=== PATIENT | male | born 1960 | race African-American/Black ===

== ENCOUNTER 2018-07-04 10:53 | Observation (INO) ==
[2018-07-04 11:20] LABS: Microscopic, Urine URINE MICROSCOPIC (MICROSCOPIC)
--- NOTE | 2018-07-04 11:20 | Emergency Department Note ---
ED Disposition Clinical Impression: Urinary tract infection Qualifiers: Urinary tract infection type: site unspecified Hematuria presence: with hematuria Qualified Code(s): N39.0 - Urinary tract infection, site not specified Disposition: Admitted as Observation Condition on Discharge: [facility] - Critical Care Critical Care Time: No Attestation: On 07/04/18, the high probability of a clinically significant, sudden or life threatening deterioration of the following system(s) required my full and direct attention, intervention and personal management. The time I documented below is in addition to time spent performing reported procedures but includes the following listed in this critical care notation. Medical Decision Making - [place] Inquiry Pt receiving controlled substance: No Vital Signs: 07/04/18 10:56 07/04/18 11:48 07/04/18 12:30 Temperature 97.8 F Temperature Source Oral Pulse Rate Pulse Rate [Right Brachial] 68 69 66 Respiratory Rate 20 18 16 Blood Pressure Blood Pressure [Right Arm] 136/80 130/60 138/73 Blood Pressure Mean [Right Arm] 98 83 94 Blood Pressure Source Blood Pressure Source [Right Arm] Automatic Cuff Automatic Cuff Automatic Cuff Blood Pressure Position Blood Pressure Position [Right Arm] Sitting Sitting Sitting 02 Sat by Pulse Oximetry 100 100 100 Oxygen Delivery Method Room Air Room Air Room Air 07/04/18 13:00 07/04/18 13:30 07/04/18 14:00 Temperature Temperature Source Pulse Rate Pulse Rate [Right Brachial] 68 70 68 Respiratory Rate 16 16 Blood Pressure Blood Pressure [Right Arm] 139/79 128/59 122/63 Blood Pressure Mean [Right Arm] 99 82 82 Blood Pressure Source Blood Pressure Source [Right Arm] Automatic Cuff Automatic Cuff Automatic Cuff Blood Pressure Position Blood Pressure Position [Right Arm] Sitting Left Lateral Sitting 02 Sat by Pulse Oximetry 99 99 98 Oxygen Delivery Method Room Air Room Air Room Air 07/04/18 14:03 07/04/18 14:17 Temperature 98.2 F Temperature Source Oral Pulse Rate 71 Pulse Rate [Right Brachial] Respiratory Rate 16 Blood Pressure 122/63 Blood Pressure [Right Arm] Blood Pressure Mean [Right Arm] Blood Pressure Source Automatic Cuff Blood Pressure Source [Right Arm] Blood Pressure Position Supine Blood Pressure Position [Right Arm] 02 Sat by Pulse Oximetry Oxygen Delivery Method Room Air Room Air - Lab Data Lab Results 07/04/18 11:10: WBC 18.8 H, RBC 4.64, Hgb 14.6, Hct 43.8, MCV 94.4 H, MCH 31.4 H , MCHC 33.3, RDW 12.9, Plt Count 411, MPV 6.9 L, Neut % (Auto) 79.6, Lymph % (Auto) 13.6, [place] % (Auto) 5.5, Eos % (Auto) 1.0, Baso % (Auto) 0.4, Neut # (Auto) 15.0 H, Lymph # (Auto) 2.6, [place] # (Auto) 1.0, Eos # (Auto) 0.2, Baso # (Auto) 0.1, Total Counted 100, Neutrophils % (Manual) 75, Lymphocytes % (Manual) 16, Atypical Lymphs % 2.0, Monocytes % (Manual) 6, Eosinophils % (Manual) 1, Platelet Estimate Normal, RBC Morphology Normal 07/04/18 11:10: Sodium 141, Potassium 3.3 L, Chloride 102, Carbon Dioxide 24, Anion Gap 18.3 H, BUN 11, Creatinine 1.25, Estimated Creat Clear 72, Estimated GFR 59, Est GFR ( Amer) 72, Glucose 146 H, Calcium 9.7, Total Bilirubin 1.1 H, AST 9 L, ALT 21, Alkaline Phosphatase 139 H, Total Protein 8.4 H, Albumin 4.0, Globulin 4.4 H, Albumin/Globulin Ratio 0.9 L, Amylase 73, Lipase 88 07/04/18 11:10: Troponin I < 0.02 07/04/18 11:15: Urine Color Yellow, Urine Appearance Sl cloudy, Urine pH 8.5, Ur Specific [place] 1.010, Urine Protein Trace, Urine Glucose (UA) Negative, Urine Ketones 1+, Urine Blood Negative, Urine Nitrate Negative, Urine Bilirubin Negative, Urine Urobilinogen 4.0, Ur Leukocyte Esterase 2+ A, Urine WBC 20-50, Ur Squamous Epith Cells 5-10, Urine Bacteria 1+ Result diagrams: 07/04/18 11:10 07/04/18 11:10 Orders (Tests/Meds): ED MEDICATIONS Generic Name Dose Route Start Last Admin Trade Name Freq PRN Reason Stop Dose Admin Acetaminophen 650 mg 07/04/18 14:03 Acetaminophen 325mg Tab PO 08/03/18 14:02 Q4HP PRN As Needed for Fever or Pain Atenolol 50 mg 07/05/18 09:00 Tenormin 50mg Tablet PO 08/04/18 08:59 DAILY BOONE Duloxetine HCl 30 mg 07/05/18 09:00 Cymbalta 30mg Capsule PO 08/04/18 08:59 DAILY BOONE Cefepime HCl 2 gm/ Sodium 100 mls @ 200 mls/hr 07/05/18 01:00 Chloride IV 07/18/18 00:59 Q12H BOONE Protocol Sodium Chloride 1,000 mls @ 100 mls/hr 07/04/18 14:03 07/04/18 15:04 Sod Chlor 0.9% 1000ml Bag IV 08/03/18 14:02 100 mls/hr .Q10H BOONE Administration Pantoprazole Sodium 40 mg 07/05/18 09:00 Protonix 40mg Tablet PO 08/04/18 08:59 DAILY BOONE Promethazine HCl 12.5 mg 07/04/18 14:03 Phenergan 25mg/Ml 1ml Vial IV 08/03/18 14:02 Q6HP PRN Nausea And Vomiting Sodium Chloride 25 ml 07/04/18 14:03 Sod Chlor 0.9% 25ml Bag IV 08/03/18 14:02 NEEDED PRN to Dilute Promethazine inj Discontinued Medications Generic Name Dose Route Start Last Admin Trade Name Freq PRN Reason Stop Dose Admin Sodium Chloride 1,000 mls @ 999 mls/hr 07/04/18 11:30 07/04/18 11:18 Sod Chlor 0.9% 1000ml Bag IV 07/04/18 12:30 999 mls/hr .Q1H1M BOONE Administration Cefepime HCl 2 gm/ Sodium 100 mls @ 200 mls/hr 07/04/18 12:00 07/04/18 13:06 Chloride IV 07/18/18 11:59 200 mls/hr Q12H BOONE Administration Protocol Ondansetron HCl 4 mg 07/04/18 11:04 07/04/18 11:18 Zofran 4mg/2ml Vial IV 07/04/18 11:05 4 mg ONCE ONE Administration Pantoprazole Sodium 40 mg 07/04/18 11:26 07/04/18 11:45 Protonix 40mg Vial IV 07/04/18 11:27 40 mg ONCE ONE Administration Promethazine HCl 12.5 mg 07/04/18 11:24 07/04/18 11:45 Phenergan 25mg/Ml 1ml Vial IV 07/04/18 11:25 12.5 mg ONCE ONE Administration Promethazine HCl 12.5 mg 07/04/18 12:56 07/04/18 13:01 Phenergan 25mg/Ml 1ml Vial IV 07/04/18 12:57 12.5 mg ONCE ONE Administration Sodium Chloride 25 ml 07/04/18 11:24 07/04/18 11:45 Sod Chlor 0.9% 25ml Bag IV 07/04/18 11:25 25 ml ONCE ONE Administration Sodium Chloride 8 ml 07/04/18 11:26 07/04/18 11:45 Saline Flush 10ml Syringe IV 07/04/18 11:27 8 ml ONCE ONE Administration Sodium Chloride 25 ml 07/04/18 12:56 07/04/18 13:09 Sod Chlor 0.9% 25ml Bag IV 07/04/18 12:57 25 ml ONCE ONE Administration ORDERS Category Date Time Status Complete Blood Count Auto Diff AMLAB Lab 07/05/18 06:00 Ordered Urinalysis and Microscopic Stat Lab 07/04/18 11:15 Ordered Blood Culture Stat Micro 07/04/18 13:15 Received Urine Culture Stat Micro 07/04/18 11:15 Received - CT Data CT Scan: Abdomen, Pelvis Time Received: 12:[address] Reviewed: Yes: I discussed the CT results w/the radiologist Findings Narrative: No renal or ureteral calculi. Bilateral inguinal hernias, smaller than previous study. No acute process. - ECG Data Tracing #1 EKG interpreted by Christos Patton MD: Rhythm: sinus Rate: 64 [place]: normal Ectopy: none Conduction: normal ST Segment Changes: none T Wave Changes: none Q Waves: none No evidence of acute ischemia or injury - Physician Consults Physician Consulted: Shawn Nicholson Time: 13:06 Reason -: Admission Comment/Response: Agrees to admit the patient to the hospital. We discussed the patient's clinical information, including history, exam, laboratory and radiology results and ED course. Per hospital procedure, I will write temporary bridge inpatient orders on the patient. Specific orders requested by the admitting physician: Continue cefepime. Anti-emetics, IV fluids. General Adult HPI - General Chief complaint: Nausea/Vomiting/Diarrhea Stated complaint: vomiting, history uti and kidney stone Time Seen by Provider: 07/04/18 11:19 Mode of Arrival: Ambulatory Limitations: No Limitations Description of Symptoms (Recalled from ER Triage Doc. by RN): Pt reports began nausea and vomitting than began lastnight, reports when urinating lastnight he noticed "pus and blood in urine". - History of Present Illness HPI narrative: Since yesterday has nausea and vomiting. Denies abdominal pain. States that he had blood and pus in his urine. Has chronic low back pain, does not feel there is any change in that symptom. No fever or diarrhea. States he has a history of gastric ulcer and he thinks it may be flaring up. Also has recently been battling urinary tract infection for the past several months. Saw a specialist for this as well. I reviewed his record. Saw urologist, diagnosed with epididymitis. Also has a history of kidney stones, and urologist felt that if the symptoms recurred he should have a CT scan. He has taken Zofran at home which did not help. States he has also received Z ofran in the past and it has not helped. Has been given something else by his physician, but does not remember what it was. - Related Data Home Medications Medication Instructions Recorded Confirmed atenolol 50 mg tablet 50 mg PO DAILY 30 Days #30 tab 06/29/18 07/04/18 duloxetine 30 mg capsule,delayed 30 mg PO DAILY 30 Days #30 cap 06/29/1807/04 release pantoprazole 40 mg tablet,delayed 40 mg PO DAILY 30 Days #30 tab 06/29/18 07/04/18 release Allergies Allergy/AdvReac Type Severity Reaction Status Date / Time adhesive [ADHESIVE] Allergy Mild Verified 06/29/18 14:45 [facility] History I have reviewed the patient's past medical history: Yes Medical History: Reports:: Gastroesophageal Reflux Disease(GERD), Hypertension, Kidney Stones, Urinary Tract Infection Denies:: Diabetes Mellitus Type 1, Diabetes Mellitus Type 2 Other Surgeries: Yes: No Previous Surgery - Social History Smoking Status: Unknown if ever smoked Alcohol Intake: never - Psychiatric History Expresses thoughts of harming self/others: None Suicide Plan Description: No Plan ROS Obtained: Yes All systems reviewed & no additional complaints - Constitutional Constitutional: Denies fever(s) - Cardiovascular Cardiovascular: Denies chest pain - Respiratory Respiratory: No dyspnea - Gastrointestinal Gastrointestingal: Reports: abdominal pain, nausea, vomiting. Denies: diarrhea - Genitourinary Male Genitourinary: Reports hematuria - Musculoskeletal Musculoskeletal: Reports back pain (Low back pain, chronic) Physical Exam - General General appearance: alert, in no apparent distress - Head Head exam: atraumatic, normocephalic, normal inspection - Eye Eye exam: Present: normal appearance, PERRL, EOMI - ENT ENT exam: Present: normal exam, normal oropharynx, mucous membranes moist, TM's normal bilaterally, normal external ear exam - Neck Neck exam: Present: normal inspection, full ROM, trachea midline. Absent: meningismus, lymphadenopathy - Chest Chest inspection: Present: normal inspection, symmetric chest wall rise. Absent: tenderness - Respiratory Respiratory exam: Present: normal lung sounds bilaterally. Absent: respiratory distress - Cardiovascular Cardiovascular exam: Present: regular rate, normal rhythm. Absent: JVD - Abdominal Exam Abdominal exam: Present: soft, tenderness, normal bowel sounds. Absent: distention, guarding Abdominal tenderness: Present: epigastrium - exam: Present: normal inspection. Absent: testicular tenderness, urethral discharge, scrotal swelling, circumcised - Extremities Exam Extremities exam: Present: normal inspection, full ROM, normal capillary refill. Absent: calf tenderness - Back Exam Back exam: Absent: CVA tenderness (R), CVA tenderness (L) - Neurological Exam Neurological exam: Present: alert, oriented X3 - Psychiatric Psychiatric exam: Present: normal affect, normal mood - Skin Skin exam: Present: warm, dry, intact, normal color
[2018-07-04 11:21] LABS: Appearance,Urine SL CLOUDY (Clear); Bilirubin,Urine Negative (Negative); Blood, Urine Negative (Negative); Color,Urine YELLOW (Yellow); Glucose,Urine (UA) Negative (Negative); Ketones,Urine 1+ (Negative); Leukocyte Esterase,Urine 2+ (Negative); PH,Urine 8.5 (5.0-8.5); Protein,Urine TRACE (Negative)
[2018-07-04 11:26] LABS: Basophils # 0.1 K/mm3 (0-0.2); Basophils % 0.4 % (0.1-2.0); Eosinophils # 0.2 K/mm3 (0.0-0.4); Hematocrit 43.8 % (42.0-52.0); Hemoglobin 14.6 g/dL (14.1-18.0); Lymphocytes # 2.6 K/mm3 (0.7-4.5); Lymphocytes % 13.6 K/mm3 (10-50); Mean Corpuscular HGB Conc 33.3 g/dL (31.8-35.4); Mean Corpuscular Hemoglobin 31.4 pg (27.0-31.2); Mean Corpuscular Volume 94.4 fl (80-94); Mean Platelet Volume 6.9 fl (7.4-10.4); Monocytes % 5.5 % (1.7-9.3); Neutrophils % 79.6 % (37.0-80.0); Platelet Count 411 K/mm3 (142-424); Red Blood Count 4.64 M/mm3 (4.60-6.20); Red Cell Distribution Width 12.9 % (11.5-17.5); White Blood Count 18.8 K/mm3 (4.8-10.8)
[2018-07-04 11:28] LABS: Bacteria,Urine 1+ /lpf; WBC,Urine 20-50 #/hpf (0-3)
[2018-07-04 11:34] LABS: Albumin/Globulin Ratio 0.9 (1.1-1.8); Anion Gap 18.3 mEq/L (5-15); Bilirubin,Total 1.1 mg/dL (0.2-1.0); Calcium 9.7 mg/dL (8.5-10.1); Globulin 4.4 gm/dl (1.3-3.2); Potassium 3.3 mmoL/L (3.5-5.1); Total Protein,Serum 8.4 gm/dL (6.4-8.2)
[2018-07-04 11:42] LABS: Eosinophils % 1 % (0-3); Lymphocytes % 16 % (10-50); Monocytes % 6 % (2-9); Neutrophils % 75 % (42-76); RBC Morphology Normal; Total Cells Counted 100
--- NOTE | 2018-07-04 14:23 | Pharmacy Consult Notes ---
[facility] Pharmacy VTE Monitoring - Patient Demographics Admission date: 07/04/18 Report Date: 07/04/18 Time: 14:23 Allergies/Adverse Reactions: Patient Allergies adhesive [ADHESIVE] Allergy (Mild, Verified 06/29/18 14:45) Height: 1.8 m Weight: 79.379 kg Patient Problems: Current Active Problems Urinary tract infection (Acute) - VTE Risk Labs: VTE Related Lab Results Hgb 14.6 g/dL (14.1-18.0) 07/04/18 11:10 Hct 43.8 % (42.0-52.0) 07/04/18 11:10 Plt Count 411 K/mm3 (142-424) 07/04/18 11:10 BUN 11 mg/dL (7-18) 07/04/18 11:10 Creatinine 1.25 mg/dL (0.70-1.30) 07/04/18 11:10 Estimated Creat Clear 72 mL/min (0-300) 07/04/18 11:10 - Prophylaxis VTE Prophylaxis Ordered?: Yes Types of VTE Prophylaxis: TEDS Knee High Location of Applied Device: Bilateral Lower Extremeties - VTE Diagnosis Confirmed Treatment or plan recommended: Continue Current Treatment
--- NOTE | 2018-07-04 16:51 | History & Physical Report ---
*Admission Date: 07/04/18 *Chief complaint: Nausea and vomiting *History of present illness: 57-year-old male with history of urinary tract infections over the last several months presented to the emergency department with 1 day of nausea and vomiting along with both blood and pus in his urine. He denies fevers. In the emergency department patient was vomiting quite a bit and even after Zofran and 2 doses of Phenergan his vomiting was unrelenting. Patient's white count was elevated and urine was abnormal. Patient was placed on IV fluids and cefepime and admitted for treatment of his infection as well as symptoms. At the time of interview he feels less nauseous and has not vomited since arrival to the floor. He has tolerated some ice chips. [facility] History I have reviewed the patient's past medical history: Yes Medical History: Reports:: Gastroesophageal Reflux Disease(GERD), Hypertension, Kidney Stones, Urinary Tract Infection Denies:: Diabetes Mellitus Type 1, Diabetes Mellitus Type 2 Other Surgeries: Yes: No Previous Surgery - *Social History Smoking Status: Unknown if ever smoked Alcohol Intake: never Substance Use Type: marijuana Occupational Status: disabled - Psychiatric History Expresses thoughts of harming self/others: None Suicide Plan Description: No Plan Review of Systems - Review of Systems Review of systems:: pertinent systems reviewed and negative unless documented below - Constitutional Denies body ache(s), Denies chills, Denies fever(s) - *Genitourinary Reports blood in urine, Reports urinary frequency, Reports urinary urgency, Denies painful urination, Denies genital lesions Meds Home Medications Medication Instructions Recorded Confirmed Type atenolol 50 mg tablet 50 mg PO DAILY 30 Days #30 tab 06/29/18 07/04/18 History duloxetine 30 mg capsule,delayed 30 mg PO DAILY 30 Days #30 cap 06/29/18 07/04/18 History release pantoprazole 40 mg tablet,delayed 40 mg PO DAILY 30 Days #30 tab 06/29/18 07/04/18 History release Allergies Allergy/AdvReac Type Severity Reaction Status Date / Time adhesive [ADHESIVE] Allergy Mild Verified 06/29/18 14:45 Exam Vital signs and Labs for Last 24 Hours: Temp Pulse Resp BP Pulse Ox 98.1 F 76 18 132/73 100 07/04/18 15:50 07/04/18 15:50 07/04/18 15:50 07/04/18 15:50 07/04/18 15:50 Laboratory Results - last 24 hr 07/04/18 11:10: WBC 18.8 H, RBC 4.64, Hgb 14.6, Hct 43.8, MCV 94.4 H, MCH 31.4 H , MCHC 33.3, RDW 12.9, Plt Count 411, MPV 6.9 L, Neut % (Auto) 79.6, Lymph % (Auto) 13.6, [place] % (Auto) 5.5, Eos % (Auto) 1.0, Baso % (Auto) 0.4, Neut # (Auto) 15.0 H, Lymph # (Auto) 2.6, [place] # (Auto) 1.0, Eos # (Auto) 0.2, Baso # (Auto) 0.1, Total Counted 100, Neutrophils % (Manual) 75, Lymphocytes % (Manual) 16, Atypical Lymphs % 2.0, Monocytes % (Manual) 6, Eosinophils % (Manual) 1, Platelet Estimate Normal, RBC Morphology Normal 07/04/18 11:10: Sodium 141, Potassium 3.3 L, Chloride 102, Carbon Dioxide 24, Anion Gap 18.3 H, BUN 11, Creatinine 1.25, Estimated Creat Clear 72, Estimated GFR 59, Est GFR ( Amer) 72, Glucose 146 H, Calcium 9.7, Total Bilirubin 1.1 H, AST 9 L, ALT 21, Alkaline Phosphatase 139 H, Total Protein 8.4 H, Albumin 4.0, Globulin 4.4 H, Albumin/Globulin Ratio 0.9 L, Amylase 73, Lipase 88 07/04/18 11:10: Troponin I < 0.02 07/04/18 11:15: Urine Color Yellow, Urine Appearance Sl cloudy, Urine pH 8.5, Ur Specific [place] 1.010, Urine Protein Trace, Urine Glucose (UA) Negative, Urine Ketones 1+, Urine Blood Negative, Urine Nitrate Negative, Urine Bilirubin Negative, Urine Urobilinogen 4.0, Ur Leukocyte Esterase 2+ A, Urine WBC 20-50, Ur Squamous Epith Cells 5-10, Urine Bacteria 1+ 07/04/18 13:15: Lactate 1.9 I & O for Last 24 hours: Intake & Output 07/02/18 07/03/18 07/04/18 07/05/18 11:59 11:59 11:59 11:59 Intake Total 999 / 999 Balance 1000 / 999 Weight 175 lb 177 lb 5 oz Narrative: Patient is awake and alert resting comfortably in bed. Oropharynx is moist. Lungs are clear to auscultation. Heart has a regular rate and rhythm. Back is without CVA tenderness. Abdomen is soft, nontender. There is no suprapubic tenderness. Extremities are warm to the touch and have active range of motion Assessment and Plan (1) Intractable vomiting with nausea Current visit: Yes Status: Acute Category: Medical Code(s): R11.2 - Nausea with vomiting, unspecified (2) Urinary tract infection Current visit: Yes Status: Acute Qualifiers: Urinary tract infection type: site unspecified Hematuria presence: with hematuria Qualified Code(s): N39.0 - Urinary tract infection, site not specified; R31.9 - Hematuria, unspecified Category: Medical Code(s): N39.0 - Urinary tract infection, site not specified - Assessment and plan all Dx Assessment and Plan for all problems:: Patient has been admitted observation for IV fluids and repeat labs in the morning. Continue IV cefepime.
[2018-07-05 06:01] LABS: Basophils # 0.1 K/mm3 (0-0.2); Basophils % 0.6 % (0.1-2.0); Eosinophils # 0.1 K/mm3 (0.0-0.4); Eosinophils % 0.4 % (0.1-12.0); Lymphocytes # 3.4 K/mm3 (0.7-4.5); Lymphocytes % 25.2 K/mm3 (10-50); Mean Corpuscular HGB Conc 32.5 g/dL (31.8-35.4); Mean Corpuscular Hemoglobin 31.4 pg (27.0-31.2); Mean Corpuscular Volume 96.5 fl (80-94); Mean Platelet Volume 6.6 fl (7.4-10.4); Monocytes # 0.9 K/mm3 (0.1-1.0); Monocytes % 6.8 % (1.7-9.3); Neutrophils # 9.1 K/mm3 (1.8-7.8); Platelet Count 378 K/mm3 (142-424); Red Blood Count 4.15 M/mm3 (4.60-6.20); White Blood Count 13.6 K/mm3 (4.8-10.8)
--- NOTE | 2018-07-05 07:20 | Discharge Summary ---
General - General Admission date:: 07/04/18 Discharge date: 07/05/18 HPI HPI: 57-year-old male with history of urinary tract infections over the last several months presented to the emergency department with 1 day of nausea and vomiting along with both blood and pus in his urine. He denies fevers. In the emergency department patient was vomiting quite a bit and even after Zofran and 2 doses of Phenergan his vomiting was unrelenting. Patient's white count was elevated and urine was abnormal. Patient was placed on IV fluids and cefepime and admitted for treatment of his infection as well as symptoms. At the time of interview he feels less nauseous and has not vomited since arrival to the floor. He has tolerated some ice chips. Hospital Course Hospital Course: Patient was admitted and placed on cefepime for his UTI. He was given Phenergan for nausea. Phenergan works well for nausea and patient did not have any further vomiting once he arrived on the [facility] floor. He did tolerate water and ice chips. His diet was advanced. He was able to tolerate small amounts of food as well as liquid. He was discharged home. Patient will be contacted in regards to his urine culture. He will be discharged home and follow-up in the office within the next week. Objective Vital signs: Temp Pulse Resp BP Pulse Ox 98.2 F 69 16 121/73 98 07/05/18 04:00 07/05/18 04:00 07/05/18 04:00 07/05/18 04:00 07/05/18 04:00 Results Labs on day of discharge: Labs from last 24 hours 07/05/18 07/04/18 07/04/18 05:35 13:15 11:15 WBC 13.6 H D RBC 4.15 L Hgb 13.0 L D Hct 40.0 L MCV 96.5 H MCH 31.4 H MCHC 32.5 RDW 13.0 Plt Count 378 MPV 6.6 L Neut % (Auto) 67.0 Lymph % (Auto) 25.2 [place] % (Auto) 6.8 Eos % (Auto) 0.4 Baso % (Auto) 0.6 Neut # (Auto) 9.1 H Lymph # (Auto) 3.4 [place] # (Auto) 0.9 Eos # (Auto) 0.1 Baso # (Auto) 0.1 Total Counted Neutrophils % (Manual) Lymphocytes % (Manual) Atypical Lymphs % Monocytes % (Manual) Eosinophils % (Manual) Platelet Estimate RBC Morphology Sodium Potassium Chloride Carbon Dioxide Anion Gap BUN Creatinine Estimated Creat Clear Estimated GFR Est GFR ( Amer) Glucose Lactate 1.9 Calcium Total Bilirubin AST ALT Alkaline Phosphatase Troponin I Total Protein Albumin Globulin Albumin/Globulin Ratio Amylase Lipase Urine Color Yellow Urine Appearance Sl cloudy Urine pH 8.5 Ur Specific [place] 1.010 Urine Protein Trace Urine Glucose (UA) Negative Urine Ketones 1+ Urine Blood Negative Urine Nitrate Negative Urine Bilirubin Negative Urine Urobilinogen 4.0 Ur Leukocyte Esterase 2+ A Urine WBC 20-50 Ur Squamous Epith Cells 5-10 Urine Bacteria 1+ 07/04/18 07/04/18 07/04/18 11:10 11:10 11:10 WBC 18.8 H RBC 4.64 Hgb 14.6 Hct 43.8 MCV 94.4 H MCH 31.4 H MCHC 33.3 RDW 12.9 Plt Count 411 MPV 6.9 L Neut % (Auto) 79.6 Lymph % (Auto) 13.6 [place] % (Auto) 5.5 Eos % (Auto) 1.0 Baso % (Auto) 0.4 Neut # (Auto) 15.0 H Lymph # (Auto) 2.6 [place] # (Auto) 1.0 Eos # (Auto) 0.2 Baso # (Auto) 0.1 Total Counted 100 Neutrophils % (Manual) 75 Lymphocytes % (Manual) 16 Atypical Lymphs % 2.0 Monocytes % (Manual) 6 Eosinophils % (Manual) 1 Platelet Estimate Normal RBC Morphology Normal Sodium 141 Potassium 3.3 L Chloride 102 Carbon Dioxide 24 Anion Gap 18.3 H BUN 11 Creatinine 1.25 Estimated Creat Clear 72 Estimated GFR 59 Est GFR ( Amer) 72 Glucose 146 H Lactate Calcium 9.7 Total Bilirubin 1.1 H AST 9 L ALT 21 Alkaline Phosphatase 139 H Troponin I < 0.02 Total Protein 8.4 H Albumin 4.0 Globulin 4.4 H Albumin/Globulin Ratio 0.9 L Amylase 73 Lipase 88 Urine Color Urine Appearance Urine pH Ur Specific [place] Urine Protein Urine Glucose (UA) Urine Ketones Urine Blood Urine Nitrate Urine Bilirubin Urine Urobilinogen Ur Leukocyte Esterase Urine WBC Ur Squamous Epith Cells Urine Bacteria DS: Diagnosis - Discharge Diagnosis (1) Urinary tract infection Status: Acute (2) Intractable vomiting with nausea Status: Acute Discharge Plan - Patient Discharge Instructions ACTIVITY: Continue current activity DIET: continue same diet - Follow up Plan Follow up with: Laurent Escobar MD [Staff Physician] - 2 weeks Disposition: Home, Self-Senior Living Medications: Home Medications Medication Instructions Recorded Confirmed Type atenolol 50 mg tablet 50 mg PO DAILY 30 Days #30 tab 06/29/18 07/04/18 History duloxetine 30 mg capsule,delayed 30 mg PO DAILY 30 Days #30 cap 06/29/18 07/04/18 History release pantoprazole 40 mg tablet,delayed 40 mg PO DAILY 30 Days #30 tab 06/29/18 07/04/18 History release Prescriptions/Medication Reconciliation: New Promethazine HCl [Phenergan 25mg tab] 25 mg PO Q6HP PRN #30 tab PRN Reason: Nausea And Vomiting Ciprofloxacin HCl [Cipro 500mg Tab] 500 mg PO BID #14 tab Continue atenolol 50 mg tablet 50 mg PO DAILY 30 Days #30 tab pantoprazole 40 mg tablet,delayed release 40 mg PO DAILY 30 Days #30 tab duloxetine 30 mg capsule,delayed release 30 mg PO DAILY 30 Days #30 cap
== END 2018-07-05 09:30 | disposition home or self-care (01) ==
LOC: ER 10:53 → 2ND 10:53
PROVIDERS: ADMIT Family Medicine; ATTEND Family Medicine

== ENCOUNTER 2022-03-01 08:52 | Emergency (ER) | payer MEDICARE, SELFPAY ==
[2022-03-01 08:58] VITALS: BP 147/85; PULSE 60; RESP 18; TEMP 36.8; O2SAT 100; BMI 26.5
[2022-03-01 09:10] VITALS: BP 147/85; PULSE 60; RESP 18; TEMP 36.8; O2SAT 100; BMI 26.4
--- NOTE | 2022-03-01 09:21 | HMH.EDUTC ---
[facility] [place] Disposition Clinical Impression: Gastroenteritis Disposition: Home, Self-Care Condition on Discharge: Good Instructions: Diarrhea, DI for Nausea -- Adult Additional Instructions: folow up PCP as needed, return here for worse or any concerns Prescriptions: Ondansetron [Zofran 4mg ODT] 4 mg PO TIDP PRN #12 tab PRN Reason: Nausea And Vomiting Transmission Status: Received by [id number] Referrals: Gino Heck MD [Primary Care Provider] - Medical Decision Making - Medical Records Medical records reviewed: No: I reviewed the patient's medical records. - Carlyle Inquiry Pt receiving controlled substance: No Vital Signs: 03/01/22 08:58 03/01/22 09:10 03/01/22 11:44 Temperature 98.2 F 98.2 F Temperature Source Oral Oral Pulse Rate Pulse Rate [Left Radial] 60 60 77 Respiratory Rate 18 18 18 Blood Pressure Blood Pressure [Right Arm] 147/85 H 147/85 H 159/75 H Blood Pressure Mean [Right Arm] 105 105 103 Blood Pressure Source [Right Arm] Automatic Cuff Blood Pressure Position [Right Arm] Sitting 02 Sat by Pulse Oximetry 100 100 99 Oxygen Delivery Method Room Air Room Air Room Air 03/01/22 12:01 Temperature 98.2 F Temperature Source Oral Pulse Rate 74 Pulse Rate [Left Radial] Respiratory Rate 18 Blood Pressure 155/84 H Blood Pressure [Right Arm] Blood Pressure Mean [Right Arm] Blood Pressure Source [Right Arm] Blood Pressure Position [Right Arm] 02 Sat by Pulse Oximetry Oxygen Delivery Method Room Air - Lab Data Lab results reviewed: Yes: I reviewed the patient's lab results. Lab Results 03/01/22 10:03: WBC 11.9 H, RBC 5.06, Hgb 16.8, Hct 49.6, MCV 98.0 H, MCH 33.1 H, MCHC 33.8, RDW 13.3, Plt Count 447 H, MPV 7.7, Neut % (Auto) 86.1 H, Lymph % (Auto) 9.8 L, [place] % (Auto) 2.1, Eos % (Auto) 0.8, Baso % (Auto) 1.1, Neut # (Auto) 10.2 H, Lymph # (Auto) 1.2, [place] # (Auto) 0.3, Eos # (Auto) 0.1, Baso # (Auto) 0.1, Total Counted 100, Neutrophils % (Manual) 87 H, Lymphocytes % (Manual) 10, Monocytes % (Manual) 2, Basophils % (Manual) 1.0, Platelet Estimate Slight increase, RBC Morphology Normal 03/01/22 10:03: Sodium 136, Potassium 3.9, Chloride 100, Carbon Dioxide 22, Anion Gap 17.9 H, BUN 7 L, Creatinine 1.00, Estimated Creat Clear 91, Estimated GFR 76, Est GFR ( Amer) 92, Glucose 170 H, Calcium 10.3 H, Total Bilirubin 0.9, AST 36, ALT 36, Alkaline Phosphatase 118, Total Protein 8.6 H, Albumin 5.0, Globulin 3.6 H, Albumin/Globulin Ratio 1.4, Amylase 112 H, Lipase 63 Result diagrams: 03/01/22 10:03 03/01/22 10:03 Orders (Tests/Meds): ED MEDICATIONS Discontinued Medications Generic Name Dose Route Start Last Admin Trade Name Freq PRN Reason Stop Dose Admin Sodium Chloride 1,000 mls @ 999 mls/hr 03/01/22 09:30 03/01/22 10:04 Sod Chlor 0.9% 1000ml Bag IV 03/01/22 10:30 999 mls/hr .Q1H1M BOONE Administration Ondansetron HCl 4 mg 03/01/22 10:32 03/01/22 10:35 Ondansetron 4mg/2ml Vial IV 03/01/22 10:33 4 mg ONCE ONE Administration Ondansetron HCl 4 mg 03/01/22 11:55 03/01/22 11:56 Ondansetron 4mg Odt SL 03/01/22 11:56 4 mg ONCE ONE Administration Promethazine HCl 25 mg 03/01/22 09:53 03/01/22 10:04 Promethazine Hcl 25mg/Ml 1ml Vial IM 03/01/22 09:54 25 mg ONCE ONE Administration [facility] [place] HPI - General Stated complaint: vomiting,diarrhea Time Seen by Provider: 03/01/22 09:22 Mode of Arrival: Ambulatory Source of Information: Patient Limitations: No Limitations Description of Symptoms (Recalled from Triage Doc. by RN): PATIENT C/O NAUSEA, VOMITING AND DIARRHEA THAT STARTED THIS MORNING HEENT Symptoms (Recalled from RN notes): No Resp Symptoms (Recalled from RN notes): No Skin Symptoms (Recalled from RN notes): No MS Symptoms (Recalled from RN notes): No Functional Status (Recalled from RN notes): WNL - History of Present Illness Provider Complaint: He states that he awoke at around 0430 this morning he awo
--- NOTE | 2022-03-01 10:06 | PC.NURSE ---
u/s guided 22g IV placed in the left forearm
[2022-03-01 10:17] LABS: Basophils # 0.1 K/mm3 (0-0.2); Basophils % 1.1 % (0.1-2.0); Eosinophils # 0.1 K/mm3 (0.0-0.4); Eosinophils % 0.8 % (0.1-12.0); Hematocrit 49.6 % (42.0-52.0); Hemoglobin 16.8 g/dL (14.1-18.0); Lymphocytes # 1.2 K/mm3 (0.7-4.5); Lymphocytes % 9.8 % (10-50); Mean Corpuscular HGB Conc 33.8 g/dL (31.8-35.4); Mean Corpuscular Hemoglobin 33.1 pg (27.0-31.2); Mean Platelet Volume 7.7 fl (7.4-10.4); Monocytes # 0.3 K/mm3 (0.1-1.0); Monocytes % 2.1 % (1.7-9.3); Neutrophils # 10.2 K/mm3 (1.8-7.8); Neutrophils % 86.1 % (37.0-80.0); Platelet Count 447 K/mm3 (142-424); Red Blood Count 5.06 M/mm3 (4.60-6.20); Red Cell Distribution Width 13.3 % (11.5-17.5); White Blood Count 11.9 K/mm3 (4.8-10.8)
[2022-03-01 10:20] LABS: Chloride 100 mmol/L (98-107); Potassium 3.9 mmoL/L (3.5-5.1); Sodium 136 mmol/L (136-145)
[2022-03-01 10:22] LABS: Alanine Aminotransferase 36 U/L (12-78); Amylase 112 U/L (30-110); Aspartate Amino Transferase 36 U/L (17-59); Blood Urea Nitrogen 7 mg/dl (9-20); Creatinine Clearance Estimated 91 mL/min (50-200); Estimated Glomerular Filt Rate 76 ml/min (>60); GFR (African American) 92 ML/MIN (>60)
[2022-03-01 10:23] LABS: Albumin/Globulin Ratio 1.4 (1.1-1.8); Alkaline Phosphatase 118 U/L (38-126); Anion Gap 17.9 mEq/L (5-15); Bilirubin,Total 0.9 mg/dl (0.2-1.3); Calcium 10.3 mg/dl (8.4-10.2); Carbon Dioxide 22 mmol/L (22.0-30.0); Globulin 3.6 g/dL (1.3-3.2); Glucose 170 mg/dl (74-100); Lipase 63 U/L (23-300); Total Protein,Serum 8.6 g/dl (6.3-8.2)
[2022-03-01 10:24] LABS: MANUAL DIFFERENTIAL MANUAL DIFFERENTIAL (MANUAL DIFF)
[2022-03-01 10:46] LABS: Lymphocytes % 10 % (10-50); Monocytes % 2 % (2-9); Neutrophils % 87 % (42-76); RBC Morphology Normal; Total Cells Counted 100
[2022-03-01 10:47] LABS: Platelet Estimate Slight Increase
--- NOTE | 2022-03-01 11:27 | PC.NURSE ---
PATIENT SENT TO ER PER Elliott JOSE APRN FOR FURTHER EVALUATION. REPORT GIVEN TO Billie BANEGAS RN
--- NOTE | 2022-03-01 11:40 | HMH.EDGENADL ---
ED Disposition Clinical Impression: Gastroenteritis Disposition: Home, Self-Care Condition on Discharge: Good Instructions: Diarrhea, DI for Nausea -- Adult Additional Instructions: folow up PCP as needed, return here for worse or any concerns Prescriptions: Ondansetron [Zofran 4mg ODT] 4 mg PO TIDP PRN #12 tab PRN Reason: Nausea And Vomiting Transmission Status: Received by [id number] Referrals: Gino Heck MD [Primary Care Provider] - - Critical Care Critical Care Time: No Attestation: On 03/01/22, the high probability of a clinically significant, sudden or life threatening deterioration of the following system(s) required my full and direct attention, intervention and personal management. The time I documented below is in addition to time spent performing reported procedures but includes the following listed in this critical care notation. Medical Decision Making - Medical Records Medical records reviewed: Yes: I reviewed the patient's medical records. - Carlyle Inquiry Pt receiving controlled substance: No Vital Signs: 03/01/22 08:58 03/01/22 09:10 03/01/22 11:44 Temperature 98.2 F 98.2 F Temperature Source Oral Oral Pulse Rate Pulse Rate [Left Radial] 60 60 77 Respiratory Rate 18 18 18 Blood Pressure Blood Pressure [Right Arm] 147/85 H 147/85 H 159/75 H Blood Pressure Mean [Right Arm] 105 105 103 Blood Pressure Source [Right Arm] Automatic Cuff Blood Pressure Position [Right Arm] Sitting 02 Sat by Pulse Oximetry 100 100 99 Oxygen Delivery Method Room Air Room Air Room Air 03/01/22 12:01 Temperature 98.2 F Temperature Source Oral Pulse Rate 74 Pulse Rate [Left Radial] Respiratory Rate 18 Blood Pressure 155/84 H Blood Pressure [Right Arm] Blood Pressure Mean [Right Arm] Blood Pressure Source [Right Arm] Blood Pressure Position [Right Arm] 02 Sat by Pulse Oximetry Oxygen Delivery Method Room Air - Lab Data Lab Results 03/01/22 10:03: WBC 11.9 H, RBC 5.06, Hgb 16.8, Hct 49.6, MCV 98.0 H, MCH 33.1 H, MCHC 33.8, RDW 13.3, Plt Count 447 H, MPV 7.7, Neut % (Auto) 86.1 H, Lymph % (Auto) 9.8 L, [place] % (Auto) 2.1, Eos % (Auto) 0.8, Baso % (Auto) 1.1, Neut # (Auto) 10.2 H, Lymph # (Auto) 1.2, [place] # (Auto) 0.3, Eos # (Auto) 0.1, Baso # (Auto) 0.1, Total Counted 100, Neutrophils % (Manual) 87 H, Lymphocytes % (Manual) 10, Monocytes % (Manual) 2, Basophils % (Manual) 1.0, Platelet Estimate Slight increase, RBC Morphology Normal 03/01/22 10:03: Sodium 136, Potassium 3.9, Chloride 100, Carbon Dioxide 22, Anion Gap 17.9 H, BUN 7 L, Creatinine 1.00, Estimated Creat Clear 91, Estimated GFR 76, Est GFR ( Amer) 92, Glucose 170 H, Calcium 10.3 H, Total Bilirubin 0.9, AST 36, ALT 36, Alkaline Phosphatase 118, Total Protein 8.6 H, Albumin 5.0, Globulin 3.6 H, Albumin/Globulin Ratio 1.4, Amylase 112 H, Lipase 63 Result diagrams: 03/01/22 10:03 03/01/22 10:03 Orders (Tests/Meds): ED MEDICATIONS Discontinued Medications Generic Name Dose Route Start Last Admin Trade Name Freq PRN Reason Stop Dose Admin Sodium Chloride 1,000 mls @ 999 mls/hr 03/01/22 09:30 03/01/22 10:04 Sod Chlor 0.9% 1000ml Bag IV 03/01/22 10:30 999 mls/hr .Q1H1M BOONE Administration Ondansetron HCl 4 mg 03/01/22 10:32 03/01/22 10:35 Ondansetron 4mg/2ml Vial IV 03/01/22 10:33 4 mg ONCE ONE Administration Ondansetron HCl 4 mg 03/01/22 11:55 03/01/22 11:56 Ondansetron 4mg Odt SL 03/01/22 11:56 4 mg ONCE ONE Administration Promethazine HCl 25 mg 03/01/22 09:53 03/01/22 10:04 Promethazine Hcl 25mg/Ml 1ml Vial IM 03/01/22 09:54 25 mg ONCE ONE Administration General Adult HPI - General Stated complaint: vomiting,diarrhea Time Seen by Provider: 03/01/22 09:22 Mode of Arrival: Ambulatory Source of Information: Patient Limitations: No Limitations Description of Symptoms (Recalled from ER Triage Doc. by RN): PATIENT C/O NAUSEA, VOMITING AND DI
[2022-03-01 11:44] VITALS: BP 159/75; PULSE 77; RESP 18; O2SAT 99; BMI 26.4
[2022-03-01 12:01] VITALS: BP 155/84; PULSE 74; RESP 18; TEMP 36.8; O2SAT 97
== END 2022-03-01 12:05 | disposition home or self-care (01) ==
LOC: ER 09:03 → UTC 09:03 → ER 11:27
PROVIDERS: Nurse Practitioner Family; Emergency Provider Emergency Medicine; PCP Family Medicine
DX: K52.9 Noninfective gastroenteritis and colitis, unspecified (principal); I10 Essential (primary) hypertension
CPT/HCPCS: 80053; 82150; 83690; 85007; 85025; 96360; 96361; 96374; 96375; 99284; J2405